=== PATIENT | female | born 1975 | race Caucasian/White ===

== ENCOUNTER 2022-11-13 19:55 | Emergency (ER) | payer MEDICAID ==
[~2022-11-13] VITALS: Ht 157.5 cm; Wt 75.3 kg
--- NOTE | 2022-11-13 20:43 | NUR ---
URINE COLLECTED AND SENT TO LAB
--- NOTE | 2022-11-13 20:47 | NUR ---
BIBFAMILY FOR RFLANK PAIN RAD TO R ABD 12/18 X2 DAYS W NAUSEA -VOMITING, -DIARRHEA, -URINARY SYMPTOMS. PLACED COMFORTABLY IN BED, VITALS CHECKED.
--- NOTE | 2022-11-13 20:52 | NUR ---
BIBFAMILY FOR R FLANK PAIN RAD TO R ABD X2 DAYS WITH ASSOSCIATED NASUEA W/O VOMITING -GI/ SYMPTOMS. AWAKE AND ALERT X4 BREATHING UNLABORED AMBULATORY WITH STEADY GAIT. CHANGED INTO GOWN AND URINE SENT TO LAB. V/S WNL.
[2022-11-13 21:07] LABS: BILIRUBIN,URINE NEGATIVE (NEGATIVE); COLOR,URINE YELLOW (YELLOW); LEUKOCYTE ESTERASE ,URINE NEGATIVE (NEGATIVE); NITRITE, URINE NEGATIVE (NEGATIVE); PH,URINE 6.5 (5.0-8.0); PROTEIN,URINE NEGATIVE (NEGATIVE); UGLUCOSE NEGATIVE (NEGATIVE); UROBILINOGEN,URINE 0.2 EU/dL (0.2)
--- NOTE | 2022-11-13 21:17 | NUR ---
BLOOD WORK COLLECTED AND SENT TO LAB
[2022-11-13 21:54] LABS: BASOPHILS # (AUTO) 0.1 K/uL (0.0-0.2); BASOPHILS % (AUTO) 0.8 % (0.0-2.0); EOSINOPHILS % (AUTO) 1.2 % (0.0-6.0); HEMATOCRIT 41 % (33-45); HEMOGLOBIN 13.4 g/dL (11.5-14.8); LYMPHOCYTES # (AUTO) 2.1 K/uL (0.8-4.8); LYMPHOCYTES % (AUTO) 20.3 % (20.0-44.0); MEAN CORPUSCULAR HGB CONC 33 g/dl (31.0-36.0); MEAN CORPUSCULAR VOLUME 92 fL (82-100); MONOCYTES # (AUTO) 0.8 K/uL (0.1-1.30); MONOCYTES % (AUTO) 8.2 % (2.0-12.0); NEUTROPHILS # (AUTO) 7.1 K/uL (1.8-8.9); NEUTROPHILS % (AUTO) 69.5 % (43.0-81.0); PLATELET COUNT (AUTO) 258 K/uL (150-450); RED BLOOD CELL COUNT(AUTO) 4.43 MIL/uL (4.0-5.2); WHITE BLOOD COUNT (AUTO) 10.2 K/uL (4.3-11.0)
[2022-11-13 22:00] LABS: CALCIUM, SERUM 9.5 mg/dL (8.5-10.1); CREATININE 0.8 mg/dL (0.6-1.3); POTASSIUM 4.5 mmol/L (3.5-5.1)
[2022-11-13 22:08] LABS: ALBUMIN 4.1 g/dL (3.4-5.0); BILIRUBIN,DIRECT 0.1 mg/dL (0.0-0.2); BILIRUBIN,TOTAL 0.4 mg/dL (0.2-1.0); TOTAL PROTEIN, SERUM 8.2 g/dL (6.4-8.2)
[2022-11-13] MEDS ORDERED: CARI350T PO ×2 (22:24→23:21)
[2022-11-13] MEDS ORDERED: HYDR-4303 PO ×2 (22:24→23:21)
[2022-11-13] MEDS ORDERED: KETOROLAC TROMETHAMINE INJ 30 MG/ML VIAL ONE (22:32)
[2022-11-13] MEDS ORDERED: KETOROLAC TROMETHAMINE INJ 30 MG/ML VIAL IV ONE (23:00)
--- NOTE | 2022-11-13 23:20 | NUR ---
Patient discharged to home in stable condition. Written and verbal after care instructions given. Patient verbalizes understanding of instruction. IV removed. Catheter intact and site benign. Pressure and 4x4 applied to site. No bleeding noted.
[2022-11-13 23:21] VITALS: BP 131/84
== END 2022-11-13 23:43 | disposition home or self-care (01) ==
LOC: ER 19:57
DX: R10.31 Right lower quadrant pain (principal)
CPT/HCPCS: 99285; 74176; 96374; 85025; 80048; 83690; 80076; 84703; 81003; 36415; J1885

== ENCOUNTER 2024-08-13 17:27 | Emergency (ER) | payer MEDICAID, OTHER ==
[~2024-08-13] VITALS: Ht 157.5 cm; Wt 68.9 kg
[~2024-08-13 17:27] MED LIST: CARI350T PO; HYDR-4303 PO
[2024-08-13 17:42] VITALS: BP 157/78; TEMP 98.3; O2SAT 98
[2024-08-13] MEDS ORDERED: IBUPROFEN 600 MG TABLET ONE (19:40)
[2024-08-13] MEDS: IBUPROFEN 600 MG TABLET PO ONE (19:45)
[2024-08-13] MEDS ORDERED: ACET-868 PO (21:09)
[2024-08-13] MEDS ORDERED: IBUP-1953 PO (21:09)
== END 2024-08-13 21:19 | disposition home or self-care (01) ==
LOC: ER 17:34
DX: M25.532 Pain in left wrist (principal); M25.522 Pain in left elbow; Z79.1 Long term (current) use of non-steroidal anti-inflammatories (NSAID)
CPT/HCPCS: 73080-TC; 73130-TC

== ENCOUNTER 2025-02-26 09:46 | Emergency (ER) | payer OTHER ==
[~2025-02-26] VITALS: Ht 160 cm; Wt 72.6 kg
[~2025-02-26 09:46] MED LIST changes: +ACET-868 PO; +IBUP-1953 PO
[2025-02-26] MEDS ORDERED: MORPHINE SULFATE INJ 4 MG/ML DISP.SYRIN ONE (10:18)
[2025-02-26] MEDS ORDERED: ONDANSETRON HCL/PF 4 MG/2 ML VIAL ONE (10:18)
[2025-02-26] MEDS ORDERED: KETOROLAC TROMETHAMINE 15 MG/ML VIAL ONE (10:18)
[2025-02-26] MEDS ORDERED: CEFTRIAXONE 1GM BAG (ER ONLY) 50 ML IV ONE (10:18)
[2025-02-26 10:23] LABS: PLATELET COUNT (AUTO) 240 K/uL (150-450); RED BLOOD CELL COUNT(AUTO) 4.52 MIL/uL (4.0-5.2); RED CELL DISTRIBUTION WIDTH 12.9 % (11.5-15.0); WHITE BLOOD COUNT (AUTO) 5.4 K/uL (4.3-11.0)
[2025-02-26] MEDS: IV NS 0.9% 1,000 ML BAG IV ONE (10:28)
[2025-02-26] MEDS: CEFTRIAXONE 1GM BAG (ER ONLY) 50 ML IV ONE (10:29)
[2025-02-26] MEDS: MORPHINE SULFATE INJ 2 MG/ML DISP.SYRIN IV ONE (10:29)
[2025-02-26] MEDS: ONDANSETRON HCL/PF 4 MG/2 ML VIAL IVP ONE (10:30)
[2025-02-26 10:33] LABS: CALCIUM, SERUM 9.0 mg/dL (8.5-10.1); CREATININE 0.7 mg/dL (0.6-1.3); SODIUM SERUM 137.0 mmol/L (136-145); UREA NITROGEN, BLOOD 10.0 mg/dL (7-18)
[2025-02-26 10:35] LABS: APPEARANCE,URINE CLEAR (CLEAR); BLOOD, URINE Trace-intact Ery/uL (NEGATIVE); LEUKOCYTE ESTERASE ,URINE Small (NEGATIVE); UGLUCOSE Negative (NEGATIVE)
[2025-02-26 10:36] LABS: NITRITE, URINE NEGATIVE (NEGATIVE)
[2025-02-26 10:39] LABS: PREGNANCY TEST URINE QUAL NEGATIVE (NEGATIVE)
[2025-02-26 10:41] LABS: ADD URINE CULTURE YES; SQUAMOUS EPITHELIAL CELL,UR Few /HPF (None Seen)
[2025-02-26 10:43] LABS: ASPARTATE AMINOTRANSFERASE 28.0 U/L (15-37); TOTAL PROTEIN, SERUM 8.2 g/dL (6.4-8.2)
[2025-02-26] MEDS: KETOROLAC TROMETHAMINE 15 MG/ML VIAL IV ONE (10:43)
[2025-02-26 10:52] LABS: LACTIC ACID 1.2 mmol/L (0.4-2.0)
[2025-02-26] MEDS ORDERED: CEFD300C3 PO (13:09)
[2025-02-26] MEDS ORDERED: NAPR-1164 PO (13:09)
[2025-02-26 13:31] VITALS: BP 135/82; TEMP 98.4; O2SAT 99
== END 2025-02-26 13:32 | disposition home or self-care (01) ==
LOC: ER 09:49
DX: N39.0 Urinary tract infection, site not specified (principal); Z79.1 Long term (current) use of non-steroidal anti-inflammatories (NSAID)
CPT/HCPCS: 99285; 74176; 96365; 96375; 85025; 80048; 87040 ×2; 87086; 83605; 83690; 80076; 84703; 81001; 36415; J1885; J2270; J2405; J7030; J0696; 87186-TC